=== PATIENT | female | born 1985 | race Caucasian/White ===

== ENCOUNTER → 2019-04-26 15:52 | Outpatient (CLI) | payer OTHER, SELFPAY ==
[2019-04-26 18:13] LABS: Free T4, Direct Thyroxine 1.06 ng/dL (0.78-2.19)
[2019-04-26 18:27] LABS: Thyroid Stimulating Hormone 2.42 uIU/mL (0.47-4.68)
== END ==
PROVIDERS: Visit Provider Obstetrics & Gynecology
DX: Z00.01 Encounter for general adult medical examination with abnormal findings (principal)
CPT/HCPCS: 36415; 84439; 84443

== ENCOUNTER → 2020-12-11 09:30 | Outpatient (CLI) | payer OTHER, SELFPAY ==
[2020-12-11 10:23] LABS: Alanine Aminotransferase 24 IU/L (<35); Albumin 4.3 g/dL (3.5-5.0); Albumin Globulin Ratio 1.5 (1.0-2.8); Alkaline Phosphatase 44 U/L (38-126); Aspartate Aminotransferase 27 IU/L (14-36); BUN Creatinine Ratio 14.3 (6-22); Bilirubin Total 0.5 mg/dL (0.2-1.3); Blood Urea Nitrogen 11 mg/dL (7-17); Calcium 9.2 mg/dL (8.4-10.2); Carbon Dioxide 25 mmol/L (22-32); Chloride 107 mmol/L (98-107); Estimated Glomerular Filt Rate > 60.0 mL/min (>60); Globulin 2.8 g/dL (1.7-4.1); Glucose 95 mg/dL (70-100); HEMOLYSIS < 15 (0-50); Sodium 138 mmol/L (137-145); Total Protein 7.1 g/dL (6.3-8.2)
[2020-12-11 10:28] LABS: Add Manual Diff / Slide Review NO; Basophils Absolute Auto 0 /uL (0-100); Eosinophils Absolute Auto 0 /uL (0-450); Eosinophils Percent Auto 0.9 % (2-4); Hematocrit 40.6 % (36-46); Hemoglobin 13.7 g/dL (12.0-16.0); Lymphocytes Absolute Auto 1000 /uL (1100-4500); Lymphocytes Percent Auto 27.5 % (25-40); Mean Corpuscular HGB Conc 33.7 % (30-36); Mean Corpuscular Hemoglobin 28.3 PG (26-34); Mean Corpuscular Volume 83.9 fL (80-100); Monocytes Absolute Auto 200 /uL (0-900); Monocytes Percent Auto 6.4 % (3-14); Neutrophils Absolute Auto 2400 /uL (1500-7000); Neutrophils Percent Auto 64.2 % (50-75); Platelet Count 156 X10^3/uL (150-400); Red Blood Cell Count 4.83 X10^6/uL (4.0-5.2); Red Cell Distribution Width 13.4 % (11.6-14.8); White Blood Cell Count 3.7 X10^3/uL (4.5-11.0)
[2020-12-11 10:41] LABS: Free T4, Direct Thyroxine 0.97 ng/dL (0.78-2.19)
[2020-12-11 10:55] LABS: Thyroid Stimulating Hormone 1.48 uIU/mL (0.47-4.68)
== END ==
PROVIDERS: PCP Obstetrics & Gynecology; Referring Provider Registered Nurse; Visit Provider Registered Nurse
DX: R53.83 Other fatigue (principal)
CPT/HCPCS: 36415; 80053; 84439; 84443; 85025

== ENCOUNTER → 2021-07-13 16:29 | Outpatient (CLI) | payer OTHER, SELFPAY ==
[2021-07-16 15:26] LABS: Candida species Negative (Negative); Gardnerella vaginalis Negative (Negative); Trichomoas vaginalis Negative (Negative)
== END ==
PROVIDERS: PCP Obstetrics & Gynecology; Visit Provider Obstetrics & Gynecology
DX: N89.8 Other specified noninflammatory disorders of vagina (principal)
CPT/HCPCS: 87480; 87510; 87660

== ENCOUNTER 2022-10-10 12:09 | Day surgery (SDC) | payer BC, OTHER, SELFPAY ==
[2022-10-09 10:32] VITALS: BMI 23.8
--- NOTE | 2022-10-10 | PATH_ITS ---
[facility] Accession Number: [id number] No. of containers..02 Tissue . 01 Material submitted: . PART A: endometrium - ENDOMETRIAL CURRETAGE PART B: uterus - UTERINE SUBMUCOUSAL FIBROID . 01 Diagnosis: A. Endometrium, Curettage: Proliferative endometrium with focal changes suggestive of a polyp. Negative for atypical hyperplasia and malignancy. . B. 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 Background proliferative endometrium. MRV 10/14/2022 1552 Local . 01 Electronically signed: . Eleni Lange MD, Pathologist NPI- [id number] . 01 Gross description: . Part A: ENDOMETRIAL CURRETAGE: Received in formalin are minute fragments of mucoid and hemorrhagic material measuring 0.6 x 0.6 x 0.3 cm in aggregate. Submitted in toto in 1 cassette. Part B: UTERINE SUBMUCOUSAL FIBROID: Received in formalin is multiple fragment of ewing soft tissue measuring 3.5 x 2.0 x 0.4 cm in aggregate. Specimen is submitted in its entirety in 3 cassettes. /RAS 10/11/2022 1852 Local . 01 Pathologist provided ICD-10: N92.0, D25.0 . 01 CPT . 837993, [id number] Specimen Comment: A courtesy copy of this report has been sent to [phone] Performed at: 01 [facility] [address] [place] [address], [place], [place] [id number] MD Henry Dumont MD Phone: [phone]
[2022-10-10 12:23] VITALS: BP 145/83; PULSE 99; RESP 17; TEMP 37.3; O2SAT 100; BMI 23.8
[2022-10-10] MEDS: LACTATED RINGERS 1,000 ML 42 ML IV (12:28)
--- NOTE | 2022-10-10 12:29 | PM.PREOP ---
Pre-operative Note COVID-19 COVID-19 status: Not tested Criteria for continued procedure: Possibility delay results in more complex future surgery or treatment Interval Note History & Physical reviewed/Exam performed by Physician: Yes Changes to H&P: No
--- NOTE | 2022-10-10 12:49 | SUR.OPER ---
Lithotomy on padded OR bed, head on pillow, arms secured on padded arm boards at <90 degrees abduction. Legs secured in padded yellow fins stirrups.
--- NOTE | 2022-10-10 13:32 | PM.OP.1 ---
Operative Date/Time/Diagnoses Date of procedure: 10/10/22 Time of procedure: 13:32 Pre-op diagnosis: Menorrhagia with intracavitary mass on ultrasound Post-op diagnosis: same (Intracavitary fibroid) Procedure & Clinicians Procedure: Hysteroscopy with resection of intracavitary fibroid with D&C Same procedure as scheduled: Yes Indications: Menorrhagia with intracavitary mass on ultrasound Surgeon: Meena Knowles Click Yes if Unassisted: Yes Anesthesia Type: General Operative Notes Findings: Normal exam under anesthesia. Intracavitary fibroid. No other uterine abnormalities. Closure Type: not applicable Specimen(s): other (D&C, resected fibroid fragments.) Estimated Blood Loss (mL): 20 Blood products transfused: none Procedure in detail: The patient was brought to the operating room where she underwent general anesthesia. She was placed in low stirrups She was prepped and draped in usual sterile fashion with pulsatile stockings in place and functional, warming in place. No antibiotics were indicated. A check system was reviewed with the staff in the room prior to beginning the case. A single-tooth tenaculum was placed on the anterior lip of the cervix and the uterus dilated to #8 Hegar dilator. The hysteroscope was placed into the uterus with a sorbitol solution running and under constant suction. The resecting loop set at 80 W of cutting was used to resect the fibroid down to the level of the endometrium. A endometrial curettage was performed. The fibroid and the endometrial curettage was sent to pathology. The patient went to recovery room in good condition counts of instruments and sponges were correct. Estimated blood loss less than 20 mL. The sorbitol solution I=O approximately 4000 mL. Complications: none Post-operative Condition: stable Disposition: same day surgery Plan for aftercare: Home when awake and stable.
[2022-10-10 13:33] VITALS: BP 126/82; PULSE 96; RESP 17; TEMP 35.9; O2SAT 99
[2022-10-10 13:38] VITALS: BP 123/76; PULSE 87; RESP 13; TEMP 36.1; O2SAT 100
[2022-10-10 13:43] VITALS: BP 124/83; PULSE 93; RESP 13; TEMP 35.9; O2SAT 99
[2022-10-10 13:48] VITALS: PULSE 83; RESP 16; TEMP 36.3; O2SAT 97
[2022-10-10 13:55] VITALS: BP 110/73; PULSE 82; RESP 18; TEMP 36.3; O2SAT 97
== END 2022-10-10 14:34 | disposition home or self-care (01) ==
PROVIDERS: Referring Provider Specialist; Visit Provider Specialist
PROC: 0UDB8ZZ Extraction of Endometrium, Via Natural or Artificial Opening Endoscopic (ICD-10-PCS; CPT 58558; principal; 2022-10-10 15:00)
DX: D25.0 Submucous leiomyoma of uterus (principal); N92.0 Excessive and frequent menstruation with regular cycle
CPT/HCPCS: 58561; 58661; J1100; J1885; J2405; J2704; J3010

== ENCOUNTER 2023-01-27 17:47 | Emergency (ER) | payer BC, SELFPAY ==
[2023-01-27] VITALS (11 sets, daily range): BP systolic 113–147; BP diastolic 57–87; PULSE 73–112; RESP 14–23; TEMP 36.6–37.2; O2SAT 99–100; BMI 23.3
[2023-01-27] MEDS: EPINEPHrine 1 MG/ML 0.3 MG IM (18:15)
[2023-01-27] MEDS: methylPREDNISolone 125 MG/2 ML VIAL IV (18:29)
[2023-01-27] MEDS: FAMOTIDINE 20 MG/2 ML VIAL 40 MG IV (18:30)
--- NOTE | 2023-01-27 18:45 | ED_ITS ---
HPI - Allergic Reaction <Koby Farias PA-C - Last Filed: 01/27/23 19:03> General Chief complaint: Allergic Reaction Stated complaint: allergic reaction to bee sting Time Seen by Provider: 01/27/23 17:59 Source: patient Mode of arrival: Ambulatory History of Present Illness HPI narrative: 37-year-old female with past medical history anaphylactic reaction to bee stings presents to the ED status post a bee sting sustained just prior to arrival. Patient was stung on her arm, following which she developed an itchy rash on her neck. Patient endorses feeling itchy all over. Patient denies any lip swelling, tongue swelling, throat tightness, trouble breathing. Patient denies chest pain, wheezing. Patient denies nausea, vomiting, abdominal pain, diarrhea. Patient states that she has had a prior anaphylactic reaction to bee stings. Patient has an EpiPen, however the EpiPen fail to deploy when she tried to use it. Patient took 2 tabs of Benadryl prior to arrival, which did not particularly improve her symptoms. Related Data Previous Rx's Medication Instructions Recorded epinephrine 0.3 mg/0.3 mL 0.3 mg (0.3 mL) IM Q5-15M PRN 01/27/23 injection, auto-injector anaphylaxis #2 ea Allergies Allergy/AdvReac Type Severity Reaction Status Date / Time venom-honey bee Allergy Severe Anaphylaxis Verified 01/27/23 18:04 Review of Systems <Koby Farias PA-C - Last Filed: 01/27/23 19:03> Review of Systems ROS Unobtainable: All systems reviewed & are unremarkable except as noted in HPI and below Constitutional Constitutional: Denies chills, Denies fatigue, Denies fever(s), Denies frequent falls, Denies lethargy and Denies weakness Eyes Eyes: Denies change in vision, Denies eye discharge, Denies irritation and Denies loss of vision ENT Ears, Nose, Mouth, and Throat: Denies change in voice, Denies dizziness, Denies neck pain, Denies sore throat and Denies throat swelling Cardiovascular Cardiovascular: Denies chest pain, Denies irregular heart rhythm, Denies lightheadedness, Denies palpitations, Denies dyspnea, Denies dyspnea on exertion and Denies orthopnea Respiratory Respiratory: Denies cough, Denies dyspnea, Denies dyspnea on exertion and Denies wheezing Gastrointestinal Gastrointestinal: Denies abdominal pain, Denies change in bowel habits, Denies diarrhea, Denies nausea and Denies vomiting Genitourinary Genitourinary: Denies hematuria, Denies flank pain, Denies urinary incontinence and Denies urinary urgency Musculoskeletal Musculoskeletal: Denies back pain, Denies muscle weakness, Denies neck pain, Denies numbness and Denies tingling Integumentary/Breasts Skin/Breast: Denies pruritus, Denies erythema, Reports rash and Denies wounds Comments: Generalized itchiness Neurologic Neurologic: Denies behavioral changes, Denies confusion, Denies dizziness, Denies frequent falls, Denies loss of vision, Denies numbness, Denies tingling and Denies weakness Psychiatric Psychiatric: Denies anxiety, Denies behavioral changes, Denies confusion, Denies depression, Denies homicidal ideation and Denies suicidal ideation Endocrine Endocrine: Denies fatigue, Denies flushing and Denies palpitations Hematologic/Lymphatic Hematologic/Lymphatic: Denies easy bruising Allergic/Immunologic Allergic/Immunologic: Denies urticaria, Denies throat swelling and Denies wheezing Patient History <Koby Farias PA-C - Last Filed: 01/27/23 19:03> Medical History Anesthesia complication Fatigue Miscarriage Nasal bone fracture Rib pain on left side SOB (shortness of breath) Vaginal delivery Surgical History History of nasal surgery History of third molar tooth extraction Social History household members: spouse and children Smoking Status: Never smoker alcohol intake: never Smoking Status: Never smoker alcohol intake frequency: other Substance Use Type: does not use Exam <Koby Farias PA-C - Last Filed: 01/27/23 19:03> Narrative Exam Narrative: Const General:?cooperative, healthy appearing and comfortable [facility] Head:?normal to inspection Ears:?hearing grossly normal bilaterally Nose:?external nose normal Face and sinus:?normal facial exam and sinuses nontender Mouth:?oral mucosae normal Throat:?posterior oropharynx normal Eyes General:?appearance normal, both eyes and all related structures Neck Neck:?normal visual inspection and no lymphadenopathy noted Resp Effort & Inspection:?normal respiratory effort Auscultation:?clear to auscultation bilaterally; no wheezing Cardio Rate:?regular rate Rhythm:?regular rhythm Integumentary Bilateral eyelid swelling. Itchy, hives on neck and chest. No lip swelling, tongue swelling. Airway is patent. Patient appeared pale and shaky. Bilateral hands appear somewhat cold and blue. Neuro General:?patient alert, patient awake and patient oriented x3 Initial Vital Signs Initial Vital Signs: Vital Signs Pulse Rate 102 H 01/27/23 17:56 Pulse Oximetry 100 01/27/23 17:56 <Bernarda Khan DO - Last Filed: 01/28/23 03:33> Initial Vital Signs Initial Vital Signs: Vital Signs Pulse Rate 102 H 01/27/23 17:56 Pulse Oximetry 100 01/27/23 17:56 Course <Koby Farias PA-C - Last Filed: 01/27/23 19:03> Orders Ordered: Discontinued Medications Epinephrine HCl (Epinephrine 1 Mg/Ml) 0.3 mg IM NOW ONE Stop: 01/27/23 18:27 Last Admin: 01/27/23 18:15 Dose: 0.3 mg Documented By: RISHABH Famotidine (Famotidine 20 Mg/2 Ml Vial) 40 mg IV NOW [facility] Last Admin: 01/27/23 18:30 Dose: 40 mg Documented By: RISHABH Methylprednisolone (Methylprednisolone 125 Mg/2 Ml Vial) 125 mg IV NOW ONE Stop: 01/27/23 18:00 Last Admin: 01/27/23 18:29 Dose: 125 mg Documented By: RISHABH Vital Signs Vital signs: Vital Signs - 8 hr 01/27/23 20:47 Temperature 99 F Pulse Rate 86 Respiratory Rate 20 Blood Pressure 113/57 L Pulse Oximetry 99 Oxygen Delivery Method Room Air <Bernarda Khan DO - Last Filed: 01/28/23 03:33> Orders Ordered: Discontinued Medications Epinephrine HCl (Epinephrine 1 Mg/Ml) 0.3 mg IM NOW ONE Stop: 01/27/23 18:27 Last Admin: 01/27/23 18:15 Dose: 0.3 mg Documented By: RISHABH Famotidine (Famotidine 20 Mg/2 Ml Vial) 40 mg IV NOW [facility] Last Admin: 01/27/23 18:30 Dose: 40 mg Documented By: RISHABH Methylprednisolone (Methylprednisolone 125 Mg/2 Ml Vial) 125 mg IV NOW ONE Stop: 01/27/23 18:00 Last Admin: 01/27/23 18:29 Dose: 125 mg Documented By: RISHABH Vital Signs Vital signs: Vital Signs - 8 hr 01/27/23 20:47 Temperature 99 F Pulse Rate 86 Respiratory Rate 20 Blood Pressure 113/57 L Pulse Oximetry 99 Oxygen Delivery Method Room Air MDM - Allergic Reaction <Koby Farias PA-C - Last Filed: 01/27/23 19:03> [facility] Narrative Medical decision making narrative: 37-year-old female with past medical history anaphylactic reaction to bee stings presents to the ED status post a bee sting sustained just prior to arrival. Physical exam is reassuring for a patent airway, no lip swelling, tongue swelling, throat swelling. Patient does appear somewhat pale and shaky. Will give epinephrine, methylprednisolone, Pepcid. Will reassess. Patient's symptoms improved with the epinephrine and medications. Patient stopped shaking, color improved. Will observe and reassess prior to discharge. <Bernarda Khan DO - Last Filed: 01/28/23 03:33> [facility] Narrative Medical decision making narrative: 37-year-old female with past medical history anaphylactic reaction to bee stings presents to the ED status post a bee sting sustained just prior to arrival. Physical exam is reassuring for a patent airway, no lip swelling, tongue swelling, throat swelling. Patient does appear somewhat pale and shaky. Will give epinephrine, methylprednisolone, Pepcid. Will reassess. Patient's symptoms improved with the epinephrine and medications. Patient stopped shaking, color improved. Will observe and reassess prior to discharge. Dr. Khan The patient signed out to me by APC of seen evaluated patient myself. She received epinephrine Solu-Medrol Pepcid overall doing much better. She reports that she was stung by a bee previously this year and did not have quite as bad over reaction. She reports malfunction in her epinephrine pen today. Discussed consequences potential rebound. New epinephrine pens have been prescribed. Discharge Plan Departure Patient Disposition: Home Clinical Impression: Anaphylactic reaction to bee sting Instructions: DI for Anaphylaxis, DI for Insect Allergy Activity Restrictions/Additional Instructions: *You have been diagnosed with anaphylaxis, bee sting *What to do: I am glad that you are feeling better. Please carry EpiPen with you at all times *Continue to take medications as directed Epi as needed for allergic reaction--> SAFEWAY Benadryl 25-50 mg every 6 hours if needed for difficulty breathing rash *Follow up with your primary care provider in 2-3 days or call [phone] *Return to ER if you should have increased difficulty breathing throat swelling tongue swelling or any new, worsening or concerning symptoms Prescriptions: New epinephrine 0.3 mg/0.3 mL auto-injector 0.3 mg IM Q5-15M PRN (Reason: anaphylaxis) Qty: 2 0RF Rx Instructions: do not exceed 3 doses per episode Referrals: Miscellaneous,Doctor, MD [Primary Care Provider] - Stand Alone Forms: Patient Portal/API <Bernarda Khan DO - Last Filed: 01/28/23 03:33> Cosign ED Attending Barbaraature Attestation: I was immediately available in the department for consultation. Documentation has been reviewed.
== END 2023-01-27 20:49 | disposition home or self-care (01) ==
PROVIDERS: Emergency Provider Emergency Medicine
DX: T63.441A Toxic effect of venom of bees, accidental (unintentional), initial encounter (principal)
CPT/HCPCS: 36415; 96372; 96374; 96375; 99284; J0171; J1200; J2930

== ENCOUNTER 2023-10-21 19:25 | Emergency (ER) | payer OTHER, SELFPAY ==
[2023-10-21 19:29] VITALS: BP 151/81; PULSE 143; RESP 16; TEMP 38.3; O2SAT 99; BMI 24.3
--- NOTE | 2023-10-21 19:37 | DI.RAD.S_ITS ---
PROCEDURE: XR CHEST 2V INDICATIONS: short of breathe with fever TECHNIQUE: 2 views of the chest were acquired. COMPARISON: None. FINDINGS: Surgical changes and devices: None. Lungs and pleura: Ill-defined opacity in right lower lung field best seen on lateral view concerning for right lower lobe infiltrate. Left lung is clear. No pleural effusions or pneumothorax. Mediastinum: Mediastinal contours are normal. Heart size is normal. Bones and chest wall: No suspicious bony abnormalities. Soft tissues appear unremarkable. IMPRESSION: Finding is concerning for small right lower lobe infiltrate. No pleural effusion or pneumothorax. Dictated by: Lee Ramirez M.D. on 10/21/2023 at 20:29 Approved by: Lee Ramirez M.D. on 10/21/2023 at 20:30
[2023-10-21 19:38] VITALS: TEMP 38.3
[2023-10-21] MEDS: ACETAMINOPHEN 325 MG TABLET 975 MG PO (19:38)
[2023-10-21 20:04] VITALS: BP 136/81; PULSE 113; O2SAT 95
[2023-10-21 20:30] VITALS: BP 123/64; PULSE 108; RESP 22; O2SAT 96
[2023-10-21 20:35] LABS: Adenovirus Not Detected (Not Detect); B. parapertussis Not Detected (Not Detecte); Bordetella pertussis Not Detected (Not Detect); Chlamydophila pneumoniae Not Detected (Not Detect); Coronavirus 229E Not Detected (Not Detect); Coronavirus HKU1 Not Detected (Not Detect); Coronavirus NL 63 Not Detected (Not Detect); Coronavirus OC43 Not Detected (Not Detect); Human Metapneumovirus Not Detected (Not Detect); Human Rhinovirus/Enterovirus Detected (Not Detect); Influenza A Not Detected (Not Detect); Influenza B Not Detected (Not Detect); Mycoplasma pneumoniae Not Detected (Not Detect); Parainfluenza Virus 1 Not Detected (Not Detect); Parainfluenza Virus 2 Not Detected (Not Detect); Parainfluenza Virus 3 Not Detected (Not Detect); Parainfluenza Virus 4 Not Detected (Not Detect); Respiratory Syncytial Virus Not Detected (Not Detect)
[2023-10-21 20:37] LABS: SARS- CoV-2 Detected (Not Detecte)
--- NOTE | 2023-10-21 20:49 | ED.URI ---
HPI - URI/Sore Throat General Chief Complaint: Upper Respiratory Symptoms Stated Complaint: feeling worse than did with covid Time Seen by Provider: 10/21/23 20:12 Source: patient Mode of arrival: Ambulatory History of Present Illness HPI Narrative: 37-year-old female with no reported past medical history presents for fever, cough, malaise. Patient states that approximately 10 days ago she tested positive for COVID-19 and has been recovering well. Yesterday patient notice an abrupt worsening with fever, mild shortness of breath, body aches. Took approximately 600 mg of ibuprofen earlier this afternoon prior to arrival. She states that when she had COVID-19 she did not have any fevers, so the fever is particularly worrisome to her. Related Data Previous Rx's Medication Instructions Recorded epinephrine 0.3 mg/0.3 mL 0.3 mg (0.3 mL) IM Q5-15M PRN 01/27/23 injection, auto-injector anaphylaxis #2 ea doxycycline hyclate 100 mg capsule 100 mg PO BID #10 caps 10/21/23 Allergies Allergy/AdvReac Type Severity Reaction Status Date / Time venom-honey bee Allergy Severe Anaphylaxis Verified 04/24/23 14:02 Review of Systems Review of Systems Narrative: See HPI Patient History Medical History History of abnormal cervical Pap smear Bee sting allergy Nasal bone fracture Anesthesia complication Rib pain on left side SOB (shortness of breath) Fatigue Miscarriage Vaginal delivery Surgical History History of nasal surgery History of third molar tooth extraction Social History household members: spouse and children Smoking Status: Never smoker alcohol intake: never Smoking Status: Never smoker alcohol intake frequency: other Substance Use Type: does not use Exam Initial Vital Signs Initial Vital Signs: Vital Signs Temperature 101 F H 10/21/23 19:29 Pulse Rate 143 H 10/21/23 19:29 Respiratory Rate 16 10/21/23 19:29 Blood Pressure 151/81 H 10/21/23 19:29 Pulse Oximetry 99 10/21/23 19:29 Oxygen Delivery Method Room Air 10/21/23 19:29 Const: Awake, alert, no acute distress, nontoxic appearing Cardiac: Tachycardia, regular rhythm RESP: unlabored, clear bilaterally, no wheezing Skin: Warm, Dry, intact, no rashes Neuro: AO x3, CN II-XII grossly intact, moves all extremities Course Orders Ordered: Discontinued Medications Acetaminophen (Acetaminophen 325 Mg Tablet) 975 mg PO NOW ONE Stop: 10/21/23 19:35 Last Admin: 10/21/23 19:38 Dose: 975 mg Documented By: HNG Doxycycline Hyclate (Doxycycline Hyclate 100 Mg Tablet) 100 mg PO NOW ONE Stop: 10/21/23 20:51 Last Admin: 10/21/23 20:56 Dose: 100 mg Documented By: Vital Signs Vital signs: Vital Signs - 8 hr 10/21/23 19:29 10/21/23 19:38 10/21/23 20:04 Temperature 101 F H 101 F H Pulse Rate 143 H 113 H Respiratory Rate 16 Blood Pressure 151/81 H Pulse Oximetry 99 95 Oxygen Delivery Method Room Air 10/21/23 20:04 10/21/23 20:30 10/21/23 20:30 Temperature Pulse Rate 108 H Respiratory Rate 22 Blood Pressure 136/81 123/64 Pulse Oximetry 96 Oxygen Delivery Method MDM - URI/Sore Throat Differential Diagnosis Differential diagnosis: Likely upper respiratory infection, croup and otitis media Lab Data Labs: Lab Results 10/21/23 Range/Units 19:40 Chlamy pneumoniae PCR Not detected (Not Detect) Adenovirus (PCR) Not detected (Not Detect) B.parapertussis DNA PCR Not detected (Not Detecte) Coronavirus OC43 (PCR) Not detected (Not Detect) Coronavirus HKU1 (PCR) Not detected (Not Detect) Coronavirus 229E (PCR) Not detected (Not Detect) SARS-CoV-2 (PCR) Detected H (Not Detecte) Coronavirus NL63 (PCR) Not detected (Not Detect) Human Metapneumovir PCR Not detected (Not Detect) Influenza Type A (PCR) Not detected (Not Detect) Influenza Type B (PCR) Not detected (Not Detect) M. pneumoniae (PCR) Not detected (Not Detect) Parainfluenza 1 (PCR) Not detected (Not Detect) Parainfluenza 2 (PCR) Not detected (Not Detect) Parainfluenza 3 (PCR) Not detected (Not Detect) Parainfluenza 4 (PCR) Not detected (Not Detect) RSV (PCR) Not detected (Not Detect) Entero/Rhino (PCR) Detected H (Not Detect) Imaging Data Chest x-ray: Radiologist's Impression: PROCEDURE: XR CHEST 2V INDICATIONS: short of breathe with fever TECHNIQUE: 2 views of the chest were acquired. COMPARISON: None. FINDINGS: Surgical changes and devices: None. Lungs and pleura: Ill-defined opacity in right lower lung field best seen on lateral view concerning for right lower lobe infiltrate. Left lung is clear. No pleural effusions or pneumothorax. Mediastinum: Mediastinal contours are normal. Heart size is normal. Bones and chest wall: No suspicious bony abnormalities. Soft tissues appear unremarkable. IMPRESSION: Finding is concerning for small right lower lobe infiltrate. No pleural effusion or pneumothorax. Dictated by: Lee Ramirez M.D. on 10/21/2023 at 20:29 Approved by: Lee Ramirez M.D. on 10/21/2023 at 20:30 [facility] Narrative Medical decision making narrative: Worsening symptoms after viral illness. Patient was febrile and tachycardic on arrival. Initially heart rate in the 140s, however when resting in ED bed patient's heart rate lowers to 100-110. Shortly after I entered the room patient's heart rate spiked to 130 beats per minute. Lungs are clear to auscultation bilaterally, no obvious rales or rhonchi on exam. We will order respiratory panel and chest x-ray to rule out post viral pneumonia. Respiratory panel positive for COVID-19 rhino virus. X-ray shows small right lower lobe infiltrate that was not obviously auscultated on exam. Since pharmacies are currently closed initial dose of doxycycline given in the emergency department. Patient was candidate for single antibiotic therapy treatment since she was young and has no significant major medical comorbidities. Patient informed of swab and x-ray results as well as plan of treatment. Antibiotics sent to pharmacy of choice. ED return precautions discussed at bedside. Discharge Plan Departure Patient Disposition: Home Clinical Impression: COVID-19, Rhinovirus, Bacterial pneumonia Instructions: DI for Pneumonia -- Adult Activity Restrictions/Additional Instructions: Your chest x-ray showed that you have a subtle pneumonia on the right-hand side. You also tested positive for COVID-19 and rhino virus today. You will be discharged on 5 days of antibiotics, please finish all of these medications as prescribed even if you feel better. You may take 400 mg of ibuprofen and 1000 mg of Tylenol every 6 hours as needed for pain or fever. Please make sure to take no more than 4000 mg of Tylenol per day. Make sure to get rest and drink plenty of fluids. If you do not notice improvement with antibiotic treatment then please return to the emergency department for repeat evaluation. Prescriptions: New doxycycline hyclate 100 mg capsule 100 mg PO BID Qty: 10 0RF No Action epinephrine 0.3 mg/0.3 mL auto-injector 0.3 mg IM Q5-15M PRN (Reason: anaphylaxis) Qty: 2 0RF Rx Instructions: do not exceed 3 doses per episode Referrals: Jaron Schmidt ARNP [Primary Care Provider] - Stand Alone Forms: Patient Portal/API
[2023-10-21] MEDS: DOXYCYCLINE HYCLATE 100 MG TABLET PO (20:56)
[2023-10-21 21:00] VITALS: PULSE 107; TEMP 37.7
== END 2023-10-21 21:01 | disposition home or self-care (01) ==
PROVIDERS: Emergency Provider Emergency Medicine; PCP Registered Nurse Diabetes Educator
DX: U07.1 COVID-19 (principal); J15.9 Unspecified bacterial pneumonia; B34.8 Other viral infections of unspecified site
CPT/HCPCS: 71046; 87633; 99283

== ENCOUNTER → 2024-01-13 08:39 | Outpatient (CLI) | payer OTHER, SELFPAY ==
--- NOTE | 2024-01-13 09:00 | DI.CT.S_ITS ---
PROCEDURE: CT FACIAL BONES WO CON INDICATIONS: eval for CSF leak TECHNIQUE: Noncontrast 2.5 mm thick axial images acquired from the mandible through the frontal sinuses, with coronal and sagittal reformatting. For radiation dose reduction, the following was used: automated exposure control, adjustment of mA and/or kV according to patient size. COMPARISON: None. FINDINGS: Maxillofacial Bones: The zygomaticomaxillary complex is intact. The pterygoid plates and skull base are unremarkable. No evidence of fracture or lytic lesion. Nasal bones are well healed. No obvious osseous defect Mandible: The mandible is intact without fracture. Unremarkable temporomandibular articulation. Dentition: Unremarkable mandibular and maxillary dentition. Soft tissues: No maxillofacial soft tissue swelling. No radiopaque foreign bodies. Orbits: The osseous orbits, globes and ocular muscles unremarkable. Sinuses and Mastoid: Left maxillary, left frontal and left sphenoid sinus mucosal thickening with air-fluid levels. Fluid opacification of the right frontal sinus. No osseous remodeling. Complete obstruction of bifrontal egress tracks. IMPRESSION: No significant osseous defect to explain CSF leak. If clinical concern persists, consider CT cisternogram with and without provocative measures Acute pansinus disease with air-fluid levels in the frontal, maxillary and sphenoid sinus. No osseous remodeling Approved by: Jose Rafael Rizzo M.D. on 01/13/2024 at 8:40
== END ==
PROVIDERS: PCP Registered Nurse Diabetes Educator; Referring Provider Registered Nurse Diabetes Educator; Visit Provider Registered Nurse Diabetes Educator
DX: J01.80 Other acute sinusitis (principal); R51.9 Headache, unspecified; Z87.81 Personal history of (healed) traumatic fracture; J34.89 Other specified disorders of nose and nasal sinuses; Z98.890 Other specified postprocedural states
CPT/HCPCS: 70486

== ENCOUNTER → 2024-02-03 14:30 | Outpatient (CLI) | payer OTHER, SELFPAY | PROVIDERS: PCP Registered Nurse Diabetes Educator; Referring Provider Registered Nurse Diabetes Educator; Visit Provider Registered Nurse Diabetes Educator | DX: J34.89 Other specified disorders of nose and nasal sinuses (principal); Z87.81 Personal history of (healed) traumatic fracture | CPT/HCPCS: 86335 ==

== ENCOUNTER → 2024-04-13 09:25 | Outpatient (CLI) | payer OTHER, SELFPAY ==
[2024-04-13 10:26] LABS: Add Manual Diff / Slide Review NO; Basophils Absolute Auto 100 /uL (0-100); Basophils Percent Auto 1.7 % (0-2); Eosinophils Absolute Auto 200 /uL (0-450); Eosinophils Percent Auto 4.9 % (2-4); Hematocrit 41.7 % (36-46); Hemoglobin 14.1 g/dL (12.0-16.0); Lymphocytes Absolute Auto 1200 /uL (1100-4500); Lymphocytes Percent Auto 28.5 % (25-40); Mean Corpuscular HGB Conc 33.8 % (30-36); Mean Corpuscular Hemoglobin 28.1 PG (26-34); Mean Corpuscular Volume 83.2 fL (80-100); Monocytes Absolute Auto 400 /uL (0-900); Monocytes Percent Auto 8.5 % (3-14); Neutrophils Absolute Auto 2400 /uL (1500-7000); Neutrophils Percent Auto 56.4 % (50-75); Platelet Count 180 X10^3/uL (150-400); Red Blood Cell Count 5.01 X10^6/uL (4.0-5.2); Red Cell Distribution Width 13.7 % (11.6-14.8); White Blood Cell Count 4.3 X10^3/uL (4.5-11.0)
[2024-04-13 10:48] LABS: Alanine Aminotransferase 19 IU/L (<35); Albumin 4.8 g/dL (3.5-5.0); Albumin Globulin Ratio 1.7 (1.0-2.8); Alkaline Phosphatase 47 U/L (38-126); Aspartate Aminotransferase 31 IU/L (14-36); BUN Creatinine Ratio 18.7 (6-22); Bilirubin Total 0.6 mg/dL (0.2-1.3); Blood Urea Nitrogen 17 mg/dL (7-17); Calcium 9.9 mg/dL (8.4-10.2); Carbon Dioxide 24 mmol/L (22-32); Chloride 104 mmol/L (98-107); Cholesterol 175 mg/dL (140-199); Estimated Glomerular Filt Rate > 60 mL/min (>60); Globulin 2.9 g/dL (1.7-4.1); Glucose 89 mg/dL (70-100); HDL Cholesterol 92 mg/dL (40-60); HEMOLYSIS < 15 (0-50); LDL Cholesterol Calculated 74 mg/dL (<100); Potassium 4.3 mmol/L (3.4-5.1); Sodium 138 mmol/L (137-145); Total Protein 7.7 g/dL (6.3-8.2); Triglycerides 43 mg/dL (35-150)
[2024-04-13 11:22] LABS: TSH w/ Reflex to FT4 2.68 uIU/mL (0.47-4.68)
[2024-04-15 15:17] LABS: Deamidated Gliadin Ab IgA 3 units (0-19); Deamidated Gliadin Ab IgG 4 units (0-19); Immunoglobulin A,Qn 124 mg/dL (87-352); t-Transglutaminase IgA <2 U/mL (0-3)
[2024-04-16 06:11] LABS: Almond IgE <0.10 kU/L (Class 0); Cashew Nut IgE <0.10 kU/L (Class 0); Codfish Allergy IgE < 0.10 kU/L (Class 0); Egg White IgE <0.10 kU/L (Class 0); Hazelnut IgE <0.10 kU/L (Class 0); Milk IgE <0.10 kU/L (Class 0); Peanut IgE <0.10 kU/L (Class 0); Salmon Allergy IgE < 0.10 kU/L (Class 0); Scallop Allergy IgE < 0.10 kU/L (Class 0); Sesame seed Allergy IgE < 0.10 kU/L (Class 0); Shrimp IgE <0.10 kU/L (Class 0); Soybean IgE <0.10 kU/L (Class 0); Tuna Allergy IgE < 0.10 kU/L (Class 0); Walnut IgE <0.10 kU/L (Class 0); Wheat Allergy IgE < 0.10 kU/L (Class 0)
== END ==
PROVIDERS: PCP Registered Nurse Diabetes Educator; Referring Provider Registered Nurse Diabetes Educator; Visit Provider Registered Nurse Diabetes Educator
DX: R19.7 Diarrhea, unspecified (principal); M53.3 Sacrococcygeal disorders, not elsewhere classified; R10.32 Left lower quadrant pain
CPT/HCPCS: 36415; 80053; 80061; 82784; 83516; 84443; 85025; 86003

== ENCOUNTER → 2024-04-29 15:44 | Outpatient (CLI) | payer OTHER, SELFPAY ==
[2024-04-29 18:59] LABS: Occult Blood 1 Negative (Negative); Occult Blood 2 Negative (Negative); Occult Blood 3 Negative (Negative); Sample 1 Time N; Sample 2 time N; Sample 3 time N
[2024-05-05 22:38] LABS: Calprotectin, Stool 24 ug/g (0-120)
== END ==
PROVIDERS: PCP Registered Nurse Diabetes Educator; Referring Provider Registered Nurse Diabetes Educator; Visit Provider Registered Nurse Diabetes Educator
DX: R19.7 Diarrhea, unspecified (principal); M53.3 Sacrococcygeal disorders, not elsewhere classified; R10.32 Left lower quadrant pain
CPT/HCPCS: 82270; 83993; 87177; 87205

== ENCOUNTER → 2024-12-09 09:39 | Outpatient (CLI) | payer OTHER, SELFPAY ==
[2024-12-09 10:50] LABS: Influenza A - CEPHEID Flu A NEGATIVE (NEGATIVE); Influenza B - CEPHEID Flu B NEGATIVE (NEGATIVE)
[2024-12-09 10:51] LABS: COVID-19 CEPHEID 4-PLEX PCR Negative (Negative)
== END ==
PROVIDERS: PCP Registered Nurse Diabetes Educator; Visit Provider Student in an Organized Health Care Education/Training Program
DX: J02.9 Acute pharyngitis, unspecified (principal); R05.1 Acute cough
CPT/HCPCS: 87070; 87637